=== PATIENT | female | born 1990 | race Caucasian/White ===

== ENCOUNTER → 2017-05-08 | Outpatient (CLI) | payer OTHER ==
[~2017-05-08] MED LIST: ALBU1AER9; ETONMIS VAGRING; MOME200A INH
--- NOTE | 2017-05-13 07:39 | MAMMOGRAPHY REPORT ---
ULTRASOUND OF LEFT BREAST: 05/08/2017 CLINICAL HISTORY: The patient reports a palpable left breast lump for a few days. She has an IUD and therefore does not have regular periods. COMPARISON: No prior exams were available for comparison. TECHNIQUE: Real-time targeted ultrasound of the left breast was performed. FINDINGS: Real-time, high resolution targeted ultrasound was performed of the area of the palpable l ump pointed out by the patient, in the left breast at 12:00. The ultrasound images are mislabeled as being located 9 cm from the nipple although the lump was located closer to the nipple than this, lik jc approximately 4 cm from the nipple. Sonographically normal tissue is seen within this region, wi thout evidence of a mass or other suspicious sonographic abnormality. IMPRESSION: ACR BI-RADS CATEGORY 1: NEGATIVE No sonographic abnormality at the site of the palpable left 12:00 breast lump. There is no sonograph ic evidence of malignancy. Recommend clinical follow-up for the palpable left 12:00 breast lump. Th e patient was verbally notified of the results. Renita Smith M.D. ah/:05/08/2017 11:27:33 Pharmacognosist: Reinta Smith MD, [facility] letter sent: Normal 1/2 BI-RADS Code: ACR BI-RADS Category 1: Negative
== END | disposition home or self-care (01) ==
LOC: C.MAMM 11:08
PROVIDERS: ATTEND Obstetrics & Gynecology
DX: N63 Unspecified lump in breast (principal); Z97.5 Presence of (intrauterine) contraceptive device